=== PATIENT | female | born 1965 | race African-American/Black ===

== ENCOUNTER 2021-10-30 13:15 | Emergency (ER) | payer OTHER, SELFPAY | END 2021-10-30 15:25 | disposition home or self-care (01) | LOC: ERS 13:15 | DX: S16.1XXA Strain of muscle, fascia and tendon at neck level, initial encounter (principal); S13.4XXA Sprain of ligaments of cervical spine, initial encounter; V89.2XXA Person injured in unspecified motor-vehicle accident, traffic, initial encounter | CPT/HCPCS: 99283 ==

== ENCOUNTER 2024-05-29 09:41 | Emergency (ER) | payer SELFPAY ==
[2024-05-29 10:10] LABS: #Basophils Less than 0.03 10x3/uL (0.0-0.2); #Eosinophils Less than 0.03 10x3/uL (0.0-0.7); %Basophils 0.3 % (0.0-1.0); %Lymphocytes 30.5 % (21.0-51.0); %Monocytes 7.4 % (0.0-10.0); %Neutrophils 61.5 % (42.0-75.0); Hematocrit 42.3 % (36.0-47.0); Hemoglobin 13.7 g/dL (12.0-16.0); Mean Corpuscular HGB CONC 32.4 g/dL (32.0-36.0); Mean Corpuscular Hemoglobin 30.1 pg (27.0-31.0); Mean Platelet Volume 9.6 fL (7.4-10.4); Platelet Count 229 10x3/uL (130-400); RBC Distribution Width 13.1 % (11.5-14.5); Red Blood Cell (RBC) Count 4.55 mill/uL (4.20-5.40)
[2024-05-29 10:27] LABS: ALT (SGPT) 18 U/L (Less than 34); AST (SGOT) 34 U/L (11-34); Albumin 3.5 g/dL (3.1-4.5); Alkaline Phosphatase 57 U/L (40-110); Anion Gap 14 mmol/L (10-20); BUN (Urea Nitrogen) 10 mg/dL (9.8-20.1); Bilirubin, Total 0.3 mg/dL (0.3-1.2); Calc. Creatinine Clearance 0 mL/min (70-130); Calcium 8.8 mg/dL (7.8-10.44); Carbon Dioxide 24 mmol/L (22-29); Chloride 103 mmol/L (98-107); Estimated GFR 88; Glucose 88 mg/dL (70-105); Potassium 3.6 mmol/L (3.5-5.1); Protein, Total 7.5 g/dL (6.0-8.3); Sodium 137 mmol/L (136-145)
[2024-05-29] MEDS ORDERED: Dextromethorphan Polistirex 60 MG/10 ML ER.12 HR UDCUP PO SCH (10:45)
[2024-05-29] MEDS ORDERED: Ondansetron ODT 4 MG TAB ONE (11:23)
[2024-05-29] MEDS ORDERED: predniSONE 20 MG TAB ONE ×2 (11:23→11:25)
== END 2024-05-29 12:05 | disposition home or self-care (01) ==
LOC: ERS 09:41
DX: J11.1 Influenza due to unidentified influenza virus with other respiratory manifestations (principal)
CPT/HCPCS: 36415; 71045; 80053; 85025; 87081; 87428; 87430; J7512; Q0162